=== PATIENT | male | born 1990 | race Two or more races ===

== ENCOUNTER 2019-11-11 17:07 | Emergency (ER) | payer OTHER ==
[~2019-11-11] VITALS: Ht 165.1 cm; Wt 59.0 kg
[2019-11-11 17:17] VITALS: BP 145/84
== END 2019-11-11 17:50 | disposition home or self-care (01) ==
LOC: ER 17:10
DX: F15.10 Other stimulant abuse, uncomplicated (principal); F11.10 Opioid abuse, uncomplicated; Z02.89 Encounter for other administrative examinations

== ENCOUNTER 2021-06-04 16:20 | Emergency (ER) | payer SELFPAY ==
[~2021-06-04] VITALS: Ht 170.2 cm; Wt 53.5 kg
[2021-06-04] MEDS ORDERED: IBUPROFEN 600 MG TABLET PO ONE (16:30)
[2021-06-04] MEDS ORDERED: LIDOCAINE 1%-EPI 1:100,000 20 ML VIAL TP ONE (16:30)
[2021-06-04 16:47] VITALS: BP 121/69
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
[2021-06-04] MEDS ORDERED: IBUPROFEN 600 MG TABLET ONE (16:55)
[2021-06-04] MEDS ORDERED: LIDOCAINE 1%-EPI 1:100,000 20 ML VIAL ONE (16:55)
--- NOTE | 2021-06-04 18:21 | NUR ---
food provided. Patient given written and verbal discharge instructions. Patient verbalizes understanding of instructions. Patient is ambulatory with steady gait. Refuses offer of group home placement. Patient given list of available shelters in surrounding area.
== END 2021-06-04 18:23 | disposition home or self-care (01) ==
LOC: ER 16:23
DX: S51.812A Laceration without foreign body of left forearm, initial encounter (principal); Y08.89XA Assault by other specified means, initial encounter; Y93.89 Activity, other specified; Y92.89 Other specified places as the place of occurrence of the external cause; Y99.8 Other external cause status
CPT/HCPCS: 12002; 73090; 99283; A6403; J3490